=== PATIENT | male | born 1995 | race Caucasian/White ===

== ENCOUNTER 2017-11-13 13:27 | Emergency (ER) | payer BC ==
[2017-11-13 13:58] VITALS: BP 144/82
--- NOTE | 2017-11-13 14:31 | UC ---
Ear Complaint HPI - HPI Summary HPI Summary: Patient presents to urgent care with his mom. Patient reports 4 days of progressive bilateral ear pain right more than left. Patient states pressure and muffled hearing right more than left. Patient is fevers or chills per patient does have sinus congestion. Patient has no sore throat. No fever/ chills/rash. No cough. No shortness of breath. Patient is not taking any over -the-counter medication. Patient states he feeling of ear infections once or twice a year and this feels the same. Patient does have a prescription for Flonase but does not take it routinely. Patient has not taken any decongestant. No ear drainage. Patient has been using prescription eardrops from a previous experience of infection. Patient's blood pressure noted to be slightly elevated today. She is on the Cipro with recent doses adjustment. Patient is not taken any decongestants. I medications reviewed at this visit. - History of Current Complaint Chief Complaint: UCEar Stated Complaint: BILATERAL EAR COMPLAINT Time Seen by Provider: 11/13/17 14:29 Hx Obtained From: Patient Severity Initially: Mild Severity Currently: Mild Pain Intensity: 4 Pain Scale Used: 0-10 Numeric - Allergies/Home Medications Allergies/Adverse Reactions: Allergies Allergy/AdvReac Type Severity Reaction Status Date / Time No Known Allergies Allergy Verified 11/13/17 13:53 Home Medications: Home Medications Fluticasone NASAL SPRAY 50MCG* [Flonase NASAL SPRAY 50MCG*] 2 spray BOTH NARES DAILY 11/13/17 [History Confirmed 11/13/17] Lisinopril TAB* [Prinivil TAB*] 10 mg PO DAILY 11/13/17 [History Confirmed 11/13] PMH/Surg Hx/FS Hx/Imm Hx Previously Healthy: Yes Cardiovascular History: Hypertension - Surgical History Surgical History: Yes Surgery Procedure, Year, and Place: T&A. EAR TUBES - Family History Known Family History: Positive: Hypertension - Social History Occupation: Employed Full-time Lives: With Family Alcohol Use: Occasionally Substance Use Type: None Smoking Status (MU): Never Smoked Tobacco - Immunization History Vaccination Up to Date: Yes Review of Systems ENT: Ear Ache All Other Systems Reviewed And Are Negative: Yes Physical Exam - Summary Physical Exam Summary: Vital Signs Reviewed: Yes A+Ox3, no distress Eyes: Conjunctiva Clear, JULIETTE. EOM intact and full ENT: Hearing grossly normal right TM + fluid,no erythema left TM ++ budlging, mild erythema turbinates inflammed and boggy, mmoist, uvula midline, no exudate , no erythema Neck: Positive: Supple Respiratory: Positive: No respiratory distress, No accessory muscle use + CTA throughout no w/r Cardiovascular: RRR nl s1, s2 no m/r CBT <2 sec abd soft + BS nt/nd no guarding, no distension Musculoskeletal Exam: BLAND x 4 without difficulty Strength Intact, ROM Intact Neurological: Positive: Alert, + sensation throughout Psychological: Positive: Normal Response To Family Skin: Positive: no rash, no ecchymosis Triage Information Reviewed: Yes Vital Signs: Initial Vital Signs Temp 98.0 F 11/13/17 13:49 Pulse 111 11/13/17 13:49 Resp 17 11/13/17 13:49 BP 144/82 11/13/17 13:49 Pulse Ox 98 11/13/17 13:49 Ear Complaint Course/Dx - Course Course Of Treatment: Patient presents with progressive right ear pain. On exam patient with left otitis media with mild erythema in the right ear as well. Discussed with patient at length. Recommend resuming Flonase. Augmentin. Secretion precautions. Motrin Tylenol. Allergy medicine. Patient to avoid decongestants due to his elevated blood pressure. Return precautions. Patient comfortable in agreement with plan. Patient declined work note - Differential Dx/Diagnosis Provider Diagnoses: otitis media Discharge - Sign-Out/Discharge Documenting (check all that apply): Patient Departure - Discharge Plan Condition: Stable Disposition: HOME Prescriptions: Amoxicillin/Clavulanate TAB* [Augmentin TAB 875*] 875 mg PO BID #20 tab Patient Education Materials: Ear Infection (ED), Hypertension (ED) Referrals: Renzo Queen MD [Primary Care Provider] - Additional Instructions: - Stay well hydrated. Drink plenty of non-alcoholic, non-caffinated beverages. - Alternate ibuprofen (Advil, Motrin) 600mg and Tylenol every 3 hours for pain or fever. Take with food. Do NOT take for more than 4-5 days. - These infections are spread by secretions - do NOT share eating or drinking utensils - clean items you share with other people such as cell phones, computer mouse, TV remote, computer tablets,etc. Once you have been antibiotics for 2 days, change your toothbrush and your pillowcase. - get plenty of restful sleep - it is recommended you resume your flonase daily - it is recommended you take over the counter allergy medication such as Nicky, Zyrtec or Claritin - contact your doctor or return with questions or concerns - Billing Disposition and Condition Condition: STABLE Disposition: Home
== END 2017-11-13 14:47 | disposition home or self-care (01) ==
LOC: UCCORT 13:27
DX: H66.92 Otitis media, unspecified, left ear (principal); H92.01 Otalgia, right ear; I10 Essential (primary) hypertension; Z79.899 Other long term (current) drug therapy
CPT/HCPCS: 99212; G0463